=== PATIENT | female | born 1995 | race Caucasian/White ===

== ENCOUNTER 2018-12-14 02:29 | Inpatient (IN) | payer SELFPAY ==
[2018-12-14] MEDS ORDERED: Lactated Ringers 1,000 ML IV ONE (03:53)
[2018-12-14] MEDS ORDERED: ePHEDrine 50 MG/ML SDV IVPUSH PRN (03:53)
[2018-12-14] MEDS ORDERED: Sodium Chloride 0.9% 10 ML Syringe FLUSH PRN (03:58)
[2018-12-14] MEDS ORDERED: Ondansetron 4 MG/2 ML SDV IV PRN (03:58)
[2018-12-14] MEDS ORDERED: Acetaminophen 325 MG Tab PO PRN (03:58)
--- NOTE | 2018-12-14 04:07 | PCM.LDHP ---
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: - Past Surgical History HEENT Surgical History: Reports: Adenoidectomy, Myringotomy w Tube(s) Other HEENT Surgeries/Procedures: recurrent ear infections as a child Social & Family History - Tobacco Use Smoking Status *Q: Never Smoker Second Hand Smoke Exposure: No - Caffeine Use Caffeine Use: Reports: Coffee - Recreational Drug Use Recreational Drug Use: No H&P Review of Systems - Review of Systems: Review Of Systems: See Below General: Reports: No Symptoms HEENT: Reports: No Symptoms Pulmonary: Reports: No Symptoms Cardiovascular: Reports: No Symptoms Gastrointestinal: Reports: No Symptoms Genitourinary: Reports: No Symptoms Musculoskeletal: Reports: No Symptoms Skin: Reports: No Symptoms Psychiatric: Reports: No Symptoms Neurological: Reports: No Symptoms Hematologic/Lymphatic: Reports: No Symptoms Immunologic: Reports: No Symptoms L&D Exam - Exam Exam: See Below - Vital Signs Vital Signs: Last Vital Signs Temp 36.7 C 12/14/18 02:33 Pulse 64 12/14/18 02:33 Resp 16 12/14/18 02:33 BP 121/74 12/14/18 02:33 Pulse Ox Weight: 69.853 kg - OB Specific Contraction Duration (sec): 50-110 Contraction Frequency (min): 2-3.5 Contraction Intensity: Moderate Movement: Active Heart Tones: Present Heart Rate (FHR) Variability: Moderate (6-25 bmp) Presentation: Vertex - [place] Score [place] Score Cervix Position: Midposition [place] Score Consistency: Soft [place] Score Effacement: >80% [place] Score Dilation: > 5 cm [place] Score 's Station: +1, +2 [place] Score Total: 12 - Exam General: Alert, Oriented, Cooperative HEENT: PERRLA, Conjunctiva Clear, EACs Clear, EOMI, Hearing Intact, Mucosa Moist & [place], Nares Patent, Normal Nasal Septum, Posterior Pharynx Clear, TMs Clear Neck: Supple, Trachea Midline Lungs: Clear to Auscultation, Normal Respiratory Effort Cardiovascular: Regular Rate, Regular Rhythm GI/Abdominal Exam: Normal Bowel Sounds, Soft, Non-Tender, No Organomegaly, No Distention, No Abnormal Bruit, No Mass, Pelvis Stable Rectal Exam: Normal Exam, Normal Rectal Tone Genitourinary: Normal external exam, Normal bimanual exam, Normal speculum exam Back Exam: Normal Inspection, Full Range of Motion Extremities: Normal Inspection, Normal Range of Motion, Non-Tender, No Pedal Edema, Normal Capillary Refill Skin: Warm, Dry, Intact Neurological: Cranial Nerves Intact, Reflexes Equal Bilateral Psychiatric: Alert, Normal Affect, Normal Mood - Patient Data Lab Results Last 24 hrs: Laboratory Results - last 24 hr 12/14/18 12/14/18 12/14/18 Range/Units 02:34 02:34 02:51 WBC 15.3 H (4.5-11.0) K/uL RBC 4.29 (3.30-5.50) M/uL Hgb 13.2 (12.0-15.0) g/dL Hct 39.7 (36.0-48.0) % MCV 93 (80-98) fL MCH 31 (27-31) pg MCHC 33 (32-36) % Plt Count 195 (150-400) K/uL Urine Color Yellow Urine Appearance Clear Urine pH 6.0 (4.5-8.0) Ur Specific [place] 1.010 (1.008-1.030) Urine Protein Negative (NEGATIVE) mg/dL Urine Glucose (UA) Normal (NEGATIVE) mg/dL Urine Ketones Negative (NEGATIVE) mg/dL Urine Occult Blood Negative (NEGATIVE) Urine Nitrite Negative (NEGATIVE) Urine Bilirubin Negative (NEGATIVE) Urine Urobilinogen Normal (NORMAL) mg/dL Ur Leukocyte Esterase Small (NEGATIVE) Urine RBC 0-5 (0-5) Urine WBC 10-20 H (0-5) Ur Epithelial Cells Few Amorphous Sediment Few Urine Bacteria Few Urine Mucus Not seen Urine Opiates Screen Negative (NEGATIVE) Ur Oxycodone Screen Negative (NEGATIVE) Urine Methadone Screen Negative (NEGATIVE) Ur Propoxyphene Screen Negative (NEGATIVE) Ur Barbiturates Screen Negative (NEGATIVE) Ur Tricyclics Screen Negative (NEGATIVE) Ur Phencyclidine Scrn Negative (NEGATIVE) Ur Amphetamine Screen Negative (NEGATIVE) U Methamphetamines Scrn Negative (NEGATIVE) Urine MDMA Screen Negative (NEGATIVE) U Benzodiazepines Scrn Negative (NEGATIVE) U Cocaine Metab Screen Negative (NEGATIVE) U Marijuana (THC) Screen Negative (NEGATIVE) Result Diagrams: 12/14/18 02:51 - Problem List (1) SNOMED Code(s): 04902992 ICD Code: Z34.90 - ENCNTR FOR SUPRVSN OF NORMAL , UNSP, UNSP TRIMESTER Status: Acute Current Visit: Yes Qualifiers: Weeks of gestation: 40 weeks Qualified Code(s): Z3A.40 - 40 weeks gestation of (2) Labor established SNOMED Code(s): 55044620 ICD Code: FZX6686 - Status: Acute Current Visit: Yes Problem List Initiated/Reviewed/Updated: Yes Orders Last 24hrs: Active Orders 24 hr Category Date Time Status Patient Status [ADT] Routine ADT 12/14/18 03:53 Active Ambulate [RC] PER UNIT ROUTINE Care 12/14/18 03:58 Ordered Communication Order [RC] ASDIRECTED Care 12/14/18 03:53 Ordered Communication Order [RC] ASDIRECTED Care 12/14/18 03:53 Ordered Heart Tones [RC] PER UNIT ROUTINE Care 12/14/18 03:53 Ordered Non Stress Test [RC] Click to Edit Care 12/14/18 03:53 Ordered Insert Urinary Catheter [OM.PC] ASDIRECTED Care 12/14/18 04:00 Ordered Local Anesthetic Infusion Pump [RC] ASDIRECTED Care 12/14/18 03:53 Ordered Notify Provider Vital Signs [RC] PRN Care 12/14/18 03:58 Ordered Notify Provider [RC] PRN Care 12/14/18 03:53 Ordered PCEA Epidural [RC] ASDIRECTED Care 12/14/18 03:53 Ordered PCEA Epidural [RC] ASDIRECTED Care 12/14/18 04:00 Ordered Up ad [place] [RC] ASDIRECTED Care 12/14/18 03:58 Ordered Urinary Catheter Assessment [RC] ASDIRECTED Care 12/14/18 04:00 Ordered VTE/DVT Education [RC] Click to Edit Care 12/14/18 04:01 Ordered Vital Signs [RC] PER UNIT ROUTINE Care 12/14/18 03:53 Active Regular Diet [DIET] Diet 12/14/18 Breakfast Active Acetaminophen [Tylenol] Med 12/14/18 03:58 Ordered 650 mg PO Q4H PRN Lactated Ringers [Ringers, Lactated] 1,000 ml Med 12/14/18 03:53 Ordered IV .BOLUS Ondansetron [Zofran] Med 12/14/18 03:58 Ordered 4 mg IV Q4H PRN Oxytocin/Normal Saline [Pitocin in NS 20 Units/1,000 ML Med 12/14/18 04:02 Ordered ] 20 unit in 1,000 ml IV ONETIME Sodium Chloride 0.9% [Saline Flush] Med 12/14/18 03:58 Ordered 10 ml FLUSH ASDIRECTED PRN ePHEDrine [ePHEDrine sulfate] Med 12/14/18 03:53 Ordered 10 mg IVPUSH ASDIRECTED PRN DVT/VTE Prophylaxis Reflex [OM.PC] Routine Oth 12/14/18 03:58 Ordered Epidural Catheter Management [OM.PC] Urgent Oth 12/14/18 03:53 Ordered Saline Lock Insert [OM.PC] Routine Oth 12/14/18 03:53 Ordered Resuscitation Status Routine Resus Stat 12/14/18 03:53 Ordered Assessment/Plan Comment:: 12/14/2018 23 yo here at 40 2/7 weeks gestation in active labor Contractions started about 1145 pm yesterday and then got more intense SVE-4-5/90/+1 Contractions regular FHTs category one Plan Continue to monitor labor Continue to monitor FHTs Epidural for pain per patient request Plan and anticipate a vaginal delivery
[2018-12-14] MEDS ORDERED: Ropivacaine 100 ML ONE (04:33)
[2018-12-14] MEDS ORDERED: Hydrocortisone 2.5% Crm 30 GM Tube TOP PRN (07:59)
[2018-12-14] MEDS ORDERED: Benzocaine 20% Top Spray 56 GM Bottle TOP PRN (07:59)
[2018-12-14] MEDS ORDERED: Witch Hazel Medicated Pads 100/Jar TOP PRN (07:59)
[2018-12-14] MEDS ORDERED: Docusate Sodium 100 MG Cap PO PRN (07:59)
[2018-12-14] MEDS ORDERED: Lanolin 100% Cream 40 GM Tube TOP PRN (07:59)
[2018-12-14] MEDS ORDERED: Acetaminophen 325 MG Tab, 50 Tab Bulk Bottle PO PRN (08:09)
[2018-12-14] MEDS ORDERED: Ibuprofen 200 MG Tab, 24 Tab Bulk Bottle PO PRN (08:09)
--- NOTE | 2018-12-14 08:19 | PCM.DEL ---
L & D Note - General Info Date of Service: 12/14/18 Mother's Due Date: 12/12/18 - Delivery Note Labor: Spontaneous Delivery Outcome: Livebirth Infant Delivery Method: Spontaneous Vaginal Delivery-Single Infant Delivery Mode: Spontaneous Presentation: Right Occiput Anterior (BIANCA) Nuchal Cord: None Anesthesia Type: Epidural Amniotic Fluid Description: Clear Episiotomy Type: Right Mediolateral Suture type: Vicryl Suture size: 3-0 Placenta: Intact, Spontaneous Cord: 3 Vessels Estimated Blood Loss: 250 Resuscitation Needed: No [place]: Bulb Syringe, Stimulated, [place] Used Score 1 min: 9 Score 5 min: 10 Second Stage Interventions: Reports: Second Nurse Assessed Progress of Descent, Second Nurse Reviewed Contraction Pattern, Second Nurse Reviewed Heart Tones, Encouragement Given, Pushing Effectively, Pushing, McRobert's Position Delivery Comments (Free Text/Narrative):: 12/14/2018 23 yo at 40 2/7 weeks gestation delivered a viable female in BIANCA position at 0724 on 12/14/2018 after a mediolateral episiotomy was made to aide with delivery. was placed on prewarmed blanket on mother's abdomen , umbilical cord was double clamped and cut by father of infant after 60 seconds of delayed cord clamping. Infant was bulb suctioned, stimulated, dried and warmed and pinked in color and cried vigorously. APGARS-9/10, weight-8lbs 2oz, length-21 inches, placenta then came spontaneous, three vessel cord, EBL- 250ml. Mediolateral episiotomy repaired in usual fashion. No other lacerations noted of perineum, vagina, labia, cervix or rectum. now skin to skin with mother and both stable in labor and delivery room. Stages- [id number] - General Info Date of Service: 12/14/18 Functional Status: Reports: Pain Controlled - Review of Systems General: Reports: No Symptoms HEENT: Reports: No Symptoms Pulmonary: Reports: No Symptoms Cardiovascular: Reports: No Symptoms Gastrointestinal: Reports: No Symptoms Genitourinary: Reports: No Symptoms Musculoskeletal: Reports: No Symptoms Skin: Reports: No Symptoms Neurological: Reports: No Symptoms Psychiatric: Reports: No Symptoms - Patient Data Vitals - Most Recent: Last Vital Signs Temp 36.7 C 12/14/18 02:33 Pulse 85 12/14/18 06:00 Resp 16 12/14/18 06:00 BP 123/65 12/14/18 07:15 Pulse Ox 97 12/14/18 06:00 Weight - Most Recent: 69.853 kg Lab Results Last 24 Hours: Laboratory Results - last 24 hr 12/14/18 12/14/18 12/14/18 Range/Units 02:34 02:34 02:51 WBC 15.3 H (4.5-11.0) K/uL RBC 4.29 (3.30-5.50) M/uL Hgb 13.2 (12.0-15.0) g/dL Hct 39.7 (36.0-48.0) % MCV 93 (80-98) fL MCH 31 (27-31) pg MCHC 33 (32-36) % Plt Count 195 (150-400) K/uL Urine Color Yellow Urine Appearance Clear Urine pH 6.0 (4.5-8.0) Ur Specific [place] 1.010 (1.008-1.030) Urine Protein Negative (NEGATIVE) mg/dL Urine Glucose (UA) Normal (NEGATIVE) mg/dL Urine Ketones Negative (NEGATIVE) mg/dL Urine Occult Blood Negative (NEGATIVE) Urine Nitrite Negative (NEGATIVE) Urine Bilirubin Negative (NEGATIVE) Urine Urobilinogen Normal (NORMAL) mg/dL Ur Leukocyte Esterase Small (NEGATIVE) Urine RBC 0-5 (0-5) Urine WBC 10-20 H (0-5) Ur Epithelial Cells Few Amorphous Sediment Few Urine Bacteria Few Urine Mucus Not seen Urine Opiates Screen Negative (NEGATIVE) Ur Oxycodone Screen Negative (NEGATIVE) Urine Methadone Screen Negative (NEGATIVE) Ur Propoxyphene Screen Negative (NEGATIVE) Ur Barbiturates Screen Negative (NEGATIVE) Ur Tricyclics Screen Negative (NEGATIVE) Ur Phencyclidine Scrn Negative (NEGATIVE) Ur Amphetamine Screen Negative (NEGATIVE) U Methamphetamines Scrn Negative (NEGATIVE) Urine MDMA Screen Negative (NEGATIVE) U Benzodiazepines Scrn Negative (NEGATIVE) U Cocaine Metab Screen Negative (NEGATIVE) U Marijuana (THC) Screen Negative (NEGATIVE) Med Orders - Current: Current Medications Acetaminophen (Tylenol) 650 mg PO Q4H PRN PRN Reason: Pain (Mild 1-3) and fever Acetaminophen (Tylenol Bulk Bottle) 325 mg PO Q4H PRN PRN Reason: Pain Benzocaine (Cueb-T-Vcwtcqh 20% [place]) 0 gm TOP Q4H PRN PRN Reason: Perineal Comfort Measure Docusate Sodium (Colace) 100 mg PO BID PRN PRN Reason: Constipation Emollient Ointment (Lansinoh Hpa) 1 gm TOP ASDIRECTED PRN PRN Reason: Sore Nipples Ephedrine Sulfate (Ephedrine Sulfate) 10 mg IVPUSH ASDIRECTED PRN PRN Reason: Hypotension Hydrocortisone (Proctozone-Hc 2.5% Crm) 1 gm TOP ASDIRECTED PRN PRN Reason: Itching Ibuprofen (Motrin Bulk Bottle) 600 mg PO Q6H PRN PRN Reason: Pain Ondansetron HCl (Zofran) 4 mg IV Q4H PRN PRN Reason: Nausea/Vomiting Sodium Chloride (Saline Flush) 10 ml FLUSH ASDIRECTED PRN PRN Reason: Keep Vein Open Witch [place] (Tucks) 1 pad TOP ASDIRECTED PRN PRN Reason: Hemorrhoids Discontinued Medications Lactated Ringer's (Ringers, Lactated) 1,000 mls @ 999 mls/hr IV .BOLUS ONE Stop: 12/14/18 04:53 Last Admin: 12/14/18 03:53 Dose: 999 mls/hr Oxytocin/Sodium Chloride (Pitocin In Ns 20 Units/1,000 Ml) 20 unit in 1,000 mls @ 2,997 mls/hr IV ONETIME ONE; Protocol Stop: 12/14/18 04:22 Ropivacaine (Naropin 0.2%) Confirm Administered Dose 100 mls @ as directed .ROUTE .STK-MED ONE Stop: 12/14/18 04:34 - Exam General: Alert, Oriented, Cooperative HEENT: Pupils Equal, Pupils Reactive, EOMI, Mucous Membr. Moist/[place] Neck: Supple Lungs: Clear to Auscultation, Normal Respiratory Effort Cardiovascular: Regular Rate, Regular Rhythm GI/Abdominal Exam: Normal Bowel Sounds, Soft, Non-Tender, No Organomegaly, No Distention, No Abnormal Bruit, No Mass, Pelvis Stable (Female) Exam: Normal External Exam, Normal Speculum Exam, Normal Bimanual Exam, Enlarged Uterus, Vaginal Bleeding Back Exam: Normal Inspection, Full Range of Motion Extremities: Normal Inspection, Normal Range of Motion, Non-Tender, No Pedal Edema, Normal Capillary Refill Skin: Warm, Dry, Intact Wound/Incisions: Healing Well Neurological: No New Focal Deficit Psy/Mental Status: Alert, Normal Affect, Normal Mood - Problem List & Annotations (1) SNOMED Code(s): 91209897 Code(s): Z34.90 - ENCNTR FOR SUPRVSN OF NORMAL , UNSP, UNSP TRIMESTER Status: Acute Current Visit: Yes Qualifiers: Weeks of gestation: 40 weeks Qualified Code(s): Z3A.40 - 40 weeks gestation of (2) Labor established SNOMED Code(s): 64046438 Code(s): ZUC3656 - Status: Acute Current Visit: Yes (3) Vaginal delivery SNOMED Code(s): 543329908 Code(s): O80 - ENCOUNTER FOR FULL-TERM UNCOMPLICATED DELIVERY Status: Acute Current Visit: Yes (4) Perineal laceration SNOMED Code(s): 172472613 Code(s): IMQ5377 - Status: Acute Priority: High Current Visit: Yes - Problem List Review Problem List Initiated/Reviewed/Updated: Yes - My Orders Last 24 Hours: My Active Orders 12/14/18 03:53 Patient Status [ADT] Routine Communication Order [RC] ASDIRECTED Communication Order [RC] ASDIRECTED Non Stress Test [RC] Click to Edit Local Anesthetic Infusion Pump [RC] ASDIRECTED Notify Provider [RC] PRN PCEA Epidural [RC] ASDIRECTED Vital Signs [RC] PER UNIT ROUTINE ePHEDrine [ePHEDrine sulfate] 10 mg IVPUSH ASDIRECTED PRN Epidural Catheter Management [OM.PC] Urgent Saline Lock Insert [OM.PC] Routine Resuscitation Status Routine 12/14/18 03:58 Ambulate [RC] PER UNIT ROUTINE Notify Provider Vital Signs [RC] PRN Up ad [place] [RC] ASDIRECTED Acetaminophen [Tylenol] 650 mg PO Q4H PRN Ondansetron [Zofran] 4 mg IV Q4H PRN Sodium Chloride 0.9% [Saline Flush] 10 ml FLUSH ASDIRECTED PRN DVT/VTE Prophylaxis Reflex [OM.PC] Routine 12/14/18 04:00 Insert Urinary Catheter [OM.PC] ASDIRECTED 12/14/18 04:01 VTE/DVT Education [RC] Click to Edit 12/14/18 07:59 Patient Status [ADT] Routine Vital Signs [RC] PFP Benzocaine [Symt-K-Epybvah 20% [place]] See Dose Instructions TOP Q4H PRN Docusate Sodium [Colace] 100 mg PO BID PRN Hydrocortisone [Proctozone-HC 2.5% Crm] 1 gm TOP ASDIRECTED PRN Lanolin [Lansinoh HPA] 1 gm TOP ASDIRECTED PRN [place] [Tucks] 1 pad TOP ASDIRECTED PRN Assess Lochia [WOMSER] Per Unit Routine Assess Uterine Involution [WOMSER] Per Unit Routine 12/14/18 08:01 Perineal Care [OM.PC] Per Unit Routine Sitz Bath [OM.PC] Per Unit Routine 12/14/18 08:09 Acetaminophen [Tylenol Bulk Bottle] 325 mg PO Q4H PRN Ibuprofen [Motrin Bulk Bottle] 600 mg PO Q6H PRN 12/14/18 Breakfast Regular Diet [DIET] 12/15/18 06:00 CBC WITH AUTO DIFF [HEME] Routine - Assessment Assessment:: 12/14/2018 23 yo G1 now P1 delivered without complications Mediolateral episiotomy repaired Labs-O positive, Hep B neg, Hep C neg, RPR nonreactive, HIV negative, Rubella Immune, GBS negative - Plan Plan:: 12/14/2018 23 yo here at 40 2/7 weeks gestation in active labor Contractions started about 1145 pm yesterday and then got more intense SVE-4-5/90/+1 Contractions regular FHTs category one Plan Continue to monitor labor Continue to monitor FHTs Epidural for pain per patient request Plan and anticipate a vaginal delivery 12/14/2018 Routine cares Encourage and support Encourage good perineal care and ice, and sitz bath
--- NOTE | 2018-12-14 13:30 | ANES ---
DATE OF SERVICE: 12/14/2018 INDICATION: Mrs. Warren is a 23-year-old female patient, referred to me by Shaye Champagne to evaluate her for a labor epidural. This is her first baby, and she is approximately 5 cm. I did explain the risks and benefits of the epidural procedure, and she wished to proceed. TECHNIQUE: She was placed in a sitting position. Her back was prepped x3 with Betadine and 1% lidocaine skin local was used. The epidural was placed at L3-4 using a 17-gauge Tuohy needle in loss of resistance technique. The epidural had very good feel throughout, and the epidural space was easily identified. There was negative CSF, negative blood, and negative paresthesias noted. Therefore, a catheter was threaded to 12 cm at the skin. There was negative CSF, negative blood, and negative paresthesias with catheter as well. A -1.5% lidocaine with epinephrine test dose was given. The catheter was then secured with Tegaderm and tape. The patient was placed in a supine position. A 0.2% ropivacaine bolus of 12 mL was given. The patient had very good relief from the bolus, and her vital signs remained stable. Therefore, 0.2% ropivacaine drip was started at 12 mL/hour. The patient's vital signs remained stable throughout the procedure and nurse was with me for the entire procedure. We will continue to monitor her Labor and Delivery stay. Evaristo England CRNA /[id number]
--- NOTE | 2018-12-15 07:46 | PCM.PNPP ---
- General Info Date of Service: 12/15/18 (PPD 1 D/C) Admission Dx/Problem (Free Text): Patient Status Order with Admit Dx/Problem 12/14/18 03:53 Patient Status [ADT] Routine Admission Diagnosis/Problem Admission Diagnosis/Problem Functional Status: Reports: Pain Controlled - Review of Systems General: Reports: No Symptoms HEENT: Reports: No Symptoms Pulmonary: Reports: No Symptoms Cardiovascular: Reports: No Symptoms Gastrointestinal: Reports: No Symptoms Genitourinary: Reports: No Symptoms Musculoskeletal: Reports: No Symptoms Skin: Reports: No Symptoms Neurological: Reports: No Symptoms Psychiatric: Reports: No Symptoms - General Info Date of Service: 12/15/18 - Patient Data Vital Signs - Most Recent: Last Vital Signs Temp 97.1 F 12/15/18 04:09 Pulse 67 12/15/18 04:09 Resp 16 12/15/18 04:09 BP 104/60 12/15/18 04:09 Pulse Ox 98 12/15/18 04:09 Weight - Most Recent: 153 lb 15.992 oz I&O - Last 24 Hours: Intake & Output 12/14/18 12/15/18 12/15/18 22:59 06:59 14:59 Intake Total 2400 1000 Balance 2400 1000 Lab Results - Last 24 Hours: Laboratory Results - last 24 hr 12/15/18 Range/Units 05:40 WBC 12.3 H (4.5-11.0) K/uL RBC 3.57 (3.30-5.50) M/uL Hgb 11.0 L D (12.0-15.0) g/dL Hct 33.7 L (36.0-48.0) % MCV 94 (80-98) fL MCH 31 (27-31) pg MCHC 33 (32-36) % Plt Count 149 L (150-400) K/uL Neut % (Auto) 73 H (36-66) % Lymph % (Auto) 18 L (24-44) % [place] % (Auto) 7 H (2-6) % Eos % (Auto) 3 (2-4) % Baso % (Auto) 0 (0-1) % Med Orders - Current: Current Medications Acetaminophen (Tylenol) 650 mg PO Q4H PRN PRN Reason: Pain (Mild 1-3) and fever Acetaminophen (Tylenol Bulk Bottle) 325 mg PO Q4H PRN PRN Reason: Pain Last Admin: 12/14/18 14:34 Dose: 2 tab Benzocaine (Hgjt-B-Ehwoiqh 20% [place]) 0 gm TOP Q4H PRN PRN Reason: Perineal Comfort Measure Docusate Sodium (Colace) 100 mg PO BID PRN PRN Reason: Constipation Emollient Ointment (Lansinoh Hpa) 1 gm TOP ASDIRECTED PRN PRN Reason: Sore Nipples Ephedrine Sulfate (Ephedrine Sulfate) 10 mg IVPUSH ASDIRECTED PRN PRN Reason: Hypotension Hydrocortisone (Proctozone-Hc 2.5% Crm) 1 gm TOP ASDIRECTED PRN PRN Reason: Itching Ibuprofen (Motrin Bulk Bottle) 600 mg PO Q6H PRN PRN Reason: Pain Last Admin: 12/14/18 10:44 Dose: 3 tab Ondansetron HCl (Zofran) 4 mg IV Q4H PRN PRN Reason: Nausea/Vomiting Sodium Chloride (Saline Flush) 10 ml FLUSH ASDIRECTED PRN PRN Reason: Keep Vein Open Witch [place] (Tucks) 1 pad TOP ASDIRECTED PRN PRN Reason: Hemorrhoids Discontinued Medications Lactated Ringer's (Ringers, Lactated) 1,000 mls @ 999 mls/hr IV .BOLUS ONE Stop: 12/14/18 04:53 Last Admin: 12/14/18 03:53 Dose: 999 mls/hr Oxytocin/Sodium Chloride (Pitocin In Ns 20 Units/1,000 Ml) 20 unit in 1,000 mls @ 2,997 mls/hr IV ONETIME ONE; Protocol Stop: 12/14/18 04:22 Last Admin: 12/14/18 07:30 Dose: 999 munits/min, 2,997 mls/hr Ropivacaine (Naropin 0.2%) Confirm Administered Dose 100 mls @ as directed .ROUTE .STK-MED ONE Stop: 12/14/18 04:34 - Interaction Disposition, : at Bedside Feeding: Breastfed Infant; Nursed Well Support Person: - Recovery Exam Fundal Tone: Firm Fundal Level: 1 Fingerbreadths Below Umbilicus Fundal Placement: Midline Lochia Amount: Moderate Lochia Color: Rubra/Red Perineum Description: Intact, Minimal Bruising/Swelling, Edematous Other Perinuem Description: Digital exam, repair intact, no hematoma Episiotomy/Laceration: Approximated Bladder Status: Voiding Urinary Elimination: Voided - Exam General: Alert, Oriented HEENT: Pupils Equal Neck: Supple Lungs: Clear to Auscultation, Normal Respiratory Effort Cardiovascular: Regular Rate, Regular Rhythm GI/Abdominal Exam: Normal Bowel Sounds, Soft, Non-Tender, No Organomegaly, No Distention, No Abnormal Bruit, No Mass, Pelvis Stable Extremities: Normal Inspection, Normal Range of Motion, Non-Tender, No Pedal Edema, Normal Capillary Refill Skin: Warm, Dry, Intact Wound/Incisions: Healing Well Neurological: No New Focal Deficit Psy/Mental Status: Alert, Normal Affect, Normal Mood - Problem List & Annotations (1) SNOMED Code(s): 48214641 Code(s): Z34.90 - ENCNTR FOR SUPRVSN OF NORMAL , UNSP, UNSP TRIMESTER Status: Acute Current Visit: Yes Qualifiers: Weeks of gestation: 40 weeks Qualified Code(s): Z3A.40 - 40 weeks gestation of (2) Labor established SNOMED Code(s): 12464542 Code(s): RIN7514 - Status: Acute Current Visit: Yes (3) Vaginal delivery SNOMED Code(s): 879166958 Code(s): O80 - ENCOUNTER FOR FULL-TERM UNCOMPLICATED DELIVERY Status: Acute Current Visit: Yes (4) Perineal laceration SNOMED Code(s): 915545122 Code(s): SQC6381 - Status: Acute Priority: High Current Visit: Yes - Problem List Review Problem List Initiated/Reviewed/Updated: Yes - Assessment Assessment:: 12/14/2018 23 yo G1 now P1 delivered without complications Mediolateral episiotomy repaired Labs-O positive, Hep B neg, Hep C neg, RPR nonreactive, HIV negative, Rubella Immune, GBS negative 12/15/18 feeling well, no S&S of depression Breast slightly tender, baby nursing well Voiding without problem Flow light, repair intact, tender no hematoma HGB 11 ABO O pos Rubella immune - Plan Plan:: 12/14/2018 23 yo here at 40 2/7 weeks gestation in active labor Contractions started about 1145 pm yesterday and then got more intense SVE-4-/+1 Contractions regular FHTs category one Plan Continue to monitor labor Continue to monitor FHTs Epidural for pain per patient request Plan and anticipate a vaginal delivery 12/14/2018 Routine cares Encourage and support Encourage good perineal care and ice, and sitz bath 12/15/18 Ready for discharge and want to go home later today Teaching about self cares, mood, breasts and bottom Has family support and Home today, see Margareth Champagne 6-8 weeks
== END 2018-12-15 15:00 | disposition home or self-care (01) | DRG 807 ==
LOC: JP.OBCHECK 02:29 → JP.OB 02:45 → OBSVTOIN 07:24 → JP.MS 15:02
PROVIDERS: ADMIT Advanced Practice Midwife; ATTEND Advanced Practice Midwife
PROC: 10E0XZZ Delivery of Products of Conception, External Approach (ICD-10-PCS; principal; 2018-12-14)
PROC: 0W8NXZZ Division of Female Perineum, External Approach (ICD-10-PCS; 2018-12-14)
PROC: 00HU33Z Insertion of Infusion Device into Spinal Canal, Percutaneous Approach (ICD-10-PCS; 2018-12-14)
DX: O80 Encounter for full-term uncomplicated delivery (principal); Z37.0 Single live birth; Z3A.40 40 weeks gestation of pregnancy
CPT/HCPCS: 36415; 51702; 59409; 80305-QW; 81001; 85025; 85027; 99211; A9270-GY; J2590; J2795; J7120

== ENCOUNTER 2021-04-22 03:53 | Inpatient (IN) | payer SELFPAY ==
[2021-04-22] MEDS ORDERED: Penicillin G Potassium 5 MILLUNITS in Sodium Chloride 0.9% 50 ML IV ONE (05:15)
[2021-04-22] MEDS ORDERED: Sodium Chloride 0.9% 10 ML Syringe FLUSH PRN (06:24)
--- NOTE | 2021-04-22 06:36 | PCM.LDHP ---
L&D History of Present Illness - General Date of Service: 04/22/21 (40 week, SROM, GBS pos) Admit Problem/Dx: Patient Status Order with Admit Dx/Problem 04/22/21 06:24 Patient Status [ADT] Routine Admission Diagnosis/Problem Admission Diagnosis/Problem Source of Information: Patient History Limitations: Reports: No Limitations - History of Present Illness Introduction:: 04/22/21 25 year old 40 IUP, SROM at home at 0250 clear fluid. 2 cm dilated at 0430 by RN. Adequate care GBS positive, Timing/Duration: Reports: minutes: (3-4) Location, : Reports: Abdomen Quality: Reports: Pressure Improves with: Reports: None Worsens with: Reports: None - Related Data Allergies/Adverse Reactions: Allergies Allergy/AdvReac Type Severity Reaction Status Date / Time No Known Allergies Allergy Verified 12/14/18 10:00 Home Medications: Home Meds Ascorbic Acid [Vitamin C] 1,000 mg PO DAILY 04/22/21 [History] Cetirizine [ZyrTEC] 10 mg PO DAILY 04/22/21 [History] Pnv No.95/Ferrous Fum/Folic AC [ Caplet] 1 each PO DAILY 04/22/21 [History] Past Medical History [employer] History: Reports: : 3 Para: 1 LMP (Approximate): (VAHE 04/22/21) - Infectious Disease History Infectious Disease History: Reports: None - Past Surgical History HEENT Surgical History: Reports: Adenoidectomy, Myringotomy w Tube(s) Other HEENT Surgeries/Procedures: recurrent ear infections as a child Social & Family History - Tobacco Use Tobacco Use Status *Q: Never Tobacco User - Caffeine Use Caffeine Use: Reports: None - Recreational Drug Use Recreational Drug Use: No H&P Review of Systems - Review of Systems: Review Of Systems: See Below General: Reports: No Symptoms HEENT: Reports: No Symptoms Pulmonary: Reports: No Symptoms Cardiovascular: Reports: No Symptoms Gastrointestinal: Reports: No Symptoms Genitourinary: Reports: No Symptoms Musculoskeletal: Reports: No Symptoms Skin: Reports: No Symptoms Psychiatric: Reports: No Symptoms Neurological: Reports: No Symptoms Hematologic/Lymphatic: Reports: No Symptoms Immunologic: Reports: No Symptoms L&D Exam - Exam Exam: See Below - Vital Signs Vital Signs: Last Vital Signs Temp 97.2 F 04/22/21 04:13 Pulse Resp BP Pulse Ox Weight: 150 lb - OB Specific Contraction Duration (sec): 70-80 Contraction Frequency (min): 3-5 Contraction Intensity: Mild to Moderate Movement: Active Heart Tones: Present Heart Tones per Min: 150 Heart Rate (FHR) Variability: Moderate (6-25 bpm) Presentation: Vertex - [place] Score [place] Score Cervix Position: Posterior [place] Score Consistency: Soft [place] Score Effacement: 51-70% [place] Score Dilation: 1-2 cm [place] Score Infant's Station: -2 [place] Score Total: 6 - Exam General: Alert, Oriented HEENT: PERRLA, Conjunctiva Clear, Hearing Intact, Mucosa Moist & [place] Neck: Supple Lungs: Clear to Auscultation, Normal Respiratory Effort Cardiovascular: Regular Rate, Regular Rhythm GI/Abdominal Exam: Normal Bowel Sounds, Soft Rectal Exam: Normal Exam Genitourinary: Normal external exam, Cervical dilitation, Enlarged uterus, Vaginal discharge Back Exam: Normal Inspection, Full Range of Motion Extremities: No Pedal Edema, Normal Capillary Refill Skin: Warm, Dry Neurological: Cranial Nerves Intact Psychiatric: Alert, Normal Affect, Normal Mood - Patient Data Lab Results Last 24 hrs: Laboratory Results - last 24 hr 04/22/21 04/22/21 04/22/21 Range/Units 04:16 04:58 05:03 WBC (4.5-11.0) K/uL RBC (3.30-5.50) M/uL Hgb (12.0-15.0) g/dL Hct (36.0-48.0) % MCV (80-98) fL MCH (27-31) pg MCHC (32-36) % Plt Count (150-400) K/uL Neut % (Auto) (36-66) % Lymph % (Auto) (24-44) % [place] % (Auto) (2-6) % Eos % (Auto) (2-4) % Baso % (Auto) (0-1) % Urine Color Yellow (YELLOW) Urine Appearance Clear (CLEAR) Urine pH 7.0 (5.0-8.0) Ur Specific [place] 1.020 (1.008-1.030) Urine Protein Negative (NEGATIVE) mg/dL Urine Glucose (UA) Negative (NEGATIVE) mg/dL Urine Ketones Negative (NEGATIVE) mg/dL Urine Occult Blood Small H (NEGATIVE) Urine Nitrite Negative (NEGATIVE) Urine Bilirubin Negative (NEGATIVE) Urine Urobilinogen 0.2 (0.2-1.0) EU/dL Ur Leukocyte Esterase Negative (NEGATIVE) Urine RBC 0-5 (0-5) Urine WBC 0-5 (0-5) Ur Epithelial Cells Few Amorphous Sediment Not seen Urine Bacteria Few Urine Mucus Not seen Membrane Rupture Positive H (NEGATIVE) Urine Opiates Screen (NEGATIVE) Ur Oxycodone Screen (NEGATIVE) Urine Methadone Screen (NEGATIVE) Ur Propoxyphene Screen (NEGATIVE) Ur Barbiturates Screen (NEGATIVE) Ur Tricyclics Screen (NEGATIVE) Ur Phencyclidine Scrn (NEGATIVE) Ur Amphetamine Screen (NEGATIVE) U Methamphetamines Scrn (NEGATIVE) Urine MDMA Screen (NEGATIVE) U Benzodiazepines Scrn (NEGATIVE) U Cocaine Metab Screen (NEGATIVE) U Marijuana (THC) Screen (NEGATIVE) SARS-CoV-2 RNA (SDINEY) Negative (NEGATIVE) 04/22/21 04/22/21 Range/Units 05:33 06:00 WBC 11.5 H (4.5-11.0) K/uL RBC 4.57 (3.30-5.50) M/uL Hgb 14.1 D (12.0-15.0) g/dL Hct 41.8 (36.0-48.0) % MCV 92 (80-98) fL MCH 31 (27-31) pg MCHC 34 (32-36) % Plt Count 185 (150-400) K/uL Neut % (Auto) 69.1 H (36-66) % Lymph % (Auto) 19.9 L (24-44) % [place] % (Auto) 8.2 H (2-6) % Eos % (Auto) 2.7 (2-4) % Baso % (Auto) 0.1 (0-1) % Urine Color (YELLOW) Urine Appearance (CLEAR) Urine pH (5.0-8.0) Ur Specific [place] (1.008-1.030) Urine Protein (NEGATIVE) mg/dL Urine Glucose (UA) (NEGATIVE) mg/dL Urine Ketones (NEGATIVE) mg/dL Urine Occult Blood (NEGATIVE) Urine Nitrite (NEGATIVE) Urine Bilirubin (NEGATIVE) Urine Urobilinogen (0.2-1.0) EU/dL Ur Leukocyte Esterase (NEGATIVE) Urine RBC (0-5) Urine WBC (0-5) Ur Epithelial Cells Amorphous Sediment Urine Bacteria Urine Mucus Membrane Rupture (NEGATIVE) Urine Opiates Screen Negative (NEGATIVE) Ur Oxycodone Screen Negative (NEGATIVE) Urine Methadone Screen Negative (NEGATIVE) Ur Propoxyphene Screen Negative (NEGATIVE) Ur Barbiturates Screen Negative (NEGATIVE) Ur Tricyclics Screen Negative (NEGATIVE) Ur Phencyclidine Scrn Negative (NEGATIVE) Ur Amphetamine Screen Negative (NEGATIVE) U Methamphetamines Scrn Negative (NEGATIVE) Urine MDMA Screen Negative (NEGATIVE) U Benzodiazepines Scrn Negative (NEGATIVE) U Cocaine Metab Screen Negative (NEGATIVE) U Marijuana (THC) Screen Negative (NEGATIVE) SARS-CoV-2 RNA (SIDNEY) (NEGATIVE) Result Diagrams: 04/22/21 06:00 - Problem List (1) GBS (group B Streptococcus carrier), +RV culture, currently SNOMED Code(s): 2420192341436, [id number], 2147332015722 ICD Code: O99.820 - STREPTOCOCCUS B CARRIER STATE COMPLICATING Status: Acute Current Visit: Yes (2) SROM (spontaneous rupture of membranes) SNOMED Code(s): 514032224 ICD Code: FBQ8668 - Status: Acute Current Visit: Yes (3) SNOMED Code(s): 72908230 ICD Code: Z34.90 - ENCNTR FOR SUPRVSN OF NORMAL , UNSP, UNSP TRIMESTER Status: Acute Current Visit: Yes Qualifiers: Weeks of gestation: 40 weeks Qualified Code(s): Z3A.40 - 40 weeks gestation of Problem List Initiated/Reviewed/Updated: Yes Orders Last 24hrs: Active Orders 24 hr Category Date Time Status Patient Status [ADT] Routine ADT 04/22/21 06:24 Ordered Antiembolic Devices [RC] .Routine Care 04/22/21 06:27 Ordered Communication Order [RC] ASDIRECTED Care 04/22/21 06:24 Ordered Heart Tones [RC] PER UNIT ROUTINE Care 04/22/21 06:24 Ordered Non Stress Test [RC] Click to Edit Care 04/22/21 06:24 Ordered Notify Provider Vital Signs [RC] PRN Care 04/22/21 06:24 Ordered Notify Provider [RC] PRN Care 04/22/21 06:24 Ordered OB Check [OM.PC] Click to Edit Care 04/22/21 03:56 Ordered VTE/DVT Education [RC] Click to Edit Care 04/22/21 06:27 Ordered Vital Signs [RC] PER UNIT ROUTINE Care 04/22/21 06:24 Ordered Regular Diet [DIET] Diet 04/22/21 Breakfast Active Oxytocin/Normal Saline [Pitocin in NS 20 Units/1,000 ML Med 04/22/21 06:28 Ordered ] 20 unit in 1,000 ml IV ONETIME Penicillin G Potassium [Pfizerpen] 2.5 millunits Med 04/22/21 09:15 Active Sodium Chloride 0.9% [Normal Saline] 50 ml IV Q4H Sodium Chloride 0.9% [Saline Flush] Med 04/22/21 06:24 Ordered 10 ml FLUSH ASDIRECTED PRN DVT/VTE Prophylaxis Reflex [OM.PC] Routine Oth 04/22/21 06:24 Ordered Saline Lock Insert [OM.PC] Routine Oth 04/22/21 06:24 Ordered Resuscitation Status Routine Resus Stat 04/22/21 06:24 Ordered Medication Orders Penicillin G Potassium 2.5 (millunits/ Sodium Chloride) 50 mls @ 100 mls/hr IV Q4H AYDEN Oxytocin/Sodium Chloride (Pitocin In Ns 20 Units/1,000 Ml) 20 unit in 1,000 mls @ 999 mls/hr IV ONETIME ONE; Protocol Stop: 04/22/21 07:28 Sodium Chloride (Sodium Chloride 0.9% 10 Ml Syringe) 10 ml FLUSH ASDIRECTED PRN PRN Reason: Keep Vein Open Assessment/Plan Comment:: 04/22/21 25 year old 40 weeks, SROM clear fluid at 0240, GBS pos treatment started, Covid negative Plan Monitor for active labor plan for vaginal delivery may want an epidural, PLT 185 Limit vaginal exams until labor established
[2021-04-22] MEDS ORDERED: Penicillin G Potassium 2.5 MILLUNITS in Sodium Chloride 0.9% 50 ML IV SCH (09:15)
--- NOTE | 2021-04-22 11:40 | PCM.DEL ---
<Any Moore A - Last Filed: 04/22/21 11:26> L & D Note - General Info Date of Service: 04/22/21 Mother's Due Date: 04/22/21 - Delivery Note Labor: Spontaneous Delivery Outcome: Livebirth Infant Delivery Method: Spontaneous Vaginal Delivery-Single Delivery Mode: Spontaneous Presentation: Right Occiput Anterior (BIANCA) Nuchal Cord: None Anesthesia Type: Nitrous Oxide Amniotic Fluid Description: Clear Episiotomy Type: None Laceration: 1st Degree, Perineal Placenta: Intact, Spontaneous Cord: 3 Vessels Estimated Blood Loss: 300 Resuscitation Needed: No [place]: Bulb Syringe, Stimulated, Warmed, [place] Used Provider: leta cristobal Score 1 min: 9 Score 5 min: 9 Second Stage Interventions: Reports: Second Nurse Assessed Progress of Descent, Second Nurse Reviewed Contraction Pattern, Second Nurse Reviewed Heart Tones, Encouragement Given, Pushing Effectively, Pushing, Feet in Foot Rests, Pushing, Knee Chest Position Delivery Comments (Free Text/Narrative):: 04/22/21 Kaitlin is a 25 year old G3 now P2 at 40 weeks, VAHE today 04/22/21. She began pushing at at 1038 when she was found to be completed and had a spontaneous forebag rupture. She was using nitrous for pain management and EFM showed a Category 1 tracing. She gave to a baby boy at 1103 via in the BIANCA position. Baby was dried, stimulated, and bulb suctioned. APGARs were 9 and 9 at 1 and 5 minutes respectively. There was no nuchal cord and it was noted to be a 3 vessel cord. He weighed 8lbs 12oz at . Placenta was expressed sponta neously and intact. There was no episiotomy but one 1st degree tear of the perineum that did not need suture repair. EBL was 300mL. She recieved one dose of abx for GBS positive status. Partner supportive and at bedside. Mother to recovery room in stable condition. to nursery in stable condition. Stages of labor Stage 1: 6959-7982 Stage 2: 3006-9349 Stage 3: 2290-9934 - General Info Date of Service: 04/22/21 Admission Dx/Problem (Free Text): Patient Status Order with Admit Dx/Problem 04/22/21 06:24 Patient Status [ADT] Routine Admission Diagnosis/Problem Admission Diagnosis/Problem Functional Status: Reports: Pain Controlled - Review of Systems General: Reports: No Symptoms HEENT: Reports: No Symptoms Pulmonary: Reports: No Symptoms Cardiovascular: Reports: No Symptoms Gastrointestinal: Reports: No Symptoms Genitourinary: Reports: No Symptoms Musculoskeletal: Reports: No Symptoms Skin: Reports: No Symptoms Neurological: Reports: No Symptoms Psychiatric: Reports: No Symptoms - Patient Data Vitals - Most Recent: Last Vital Signs Temp 97.5 F 04/22/21 08:20 Pulse 73 04/22/21 08:20 Resp 20 04/22/21 08:20 BP 99/64 04/22/21 08:20 Pulse Ox 96 04/22/21 08:20 Weight - Most Recent: 150 lb Lab Results Last 24 Hours: Laboratory Results - last 24 hr 04/22/21 04/22/21 04/22/21 Range/Units 04:16 04:58 05:03 WBC (4.5-11.0) K/uL RBC (3.30-5.50) M/uL Hgb (12.0-15.0) g/dL Hct (36.0-48.0) % MCV (80-98) fL MCH (27-31) pg MCHC (32-36) % Plt Count (150-400) K/uL Neut % (Auto) (36-66) % Lymph % (Auto) (24-44) % [place] % (Auto) (2-6) % Eos % (Auto) (2-4) % Baso % (Auto) (0-1) % Urine Color Yellow (YELLOW) Urine Appearance Clear (CLEAR) Urine pH 7.0 (5.0-8.0) Ur Specific [place] 1.020 (1.008-1.030) Urine Protein Negative (NEGATIVE) mg/dL Urine Glucose (UA) Negative (NEGATIVE) mg/dL Urine Ketones Negative (NEGATIVE) mg/dL Urine Occult Blood Small H (NEGATIVE) Urine Nitrite Negative (NEGATIVE) Urine Bilirubin Negative (NEGATIVE) Urine Urobilinogen 0.2 (0.2-1.0) EU/dL Ur Leukocyte Esterase Negative (NEGATIVE) Urine RBC 0-5 (0-5) Urine WBC 0-5 (0-5) Ur Epithelial Cells Few Amorphous Sediment Not seen Urine Bacteria Few Urine Mucus Not seen Membrane Rupture Positive H (NEGATIVE) Urine Opiates Screen (NEGATIVE) Ur Oxycodone Screen (NEGATIVE) Urine Methadone Screen (NEGATIVE) Ur Propoxyphene Screen (NEGATIVE) Ur Barbiturates Screen (NEGATIVE) Ur Tricyclics Screen (NEGATIVE) Ur Phencyclidine Scrn (NEGATIVE) Ur Amphetamine Screen (NEGATIVE) U Methamphetamines Scrn (NEGATIVE) Urine MDMA Screen (NEGATIVE) U Benzodiazepines Scrn (NEGATIVE) U Cocaine Metab Screen (NEGATIVE) U Marijuana (THC) Screen (NEGATIVE) SARS-CoV-2 RNA (SIDNEY) Negative (NEGATIVE) 04/22/21 04/22/21 Range/Units 05:33 06:00 WBC 11.5 H (4.5-11.0) K/uL RBC 4.57 (3.30-5.50) M/uL Hgb 14.1 D (12.0-15.0) g/dL Hct 41.8 (36.0-48.0) % MCV 92 (80-98) fL MCH 31 (27-31) pg MCHC 34 (32-36) % Plt Count 185 (150-400) K/uL Neut % (Auto) 69.1 H (36-66) % Lymph % (Auto) 19.9 L (24-44) % [place] % (Auto) 8.2 H (2-6) % Eos % (Auto) 2.7 (2-4) % Baso % (Auto) 0.1 (0-1) % Urine Color (YELLOW) Urine Appearance (CLEAR) Urine pH (5.0-8.0) Ur Specific [place] (1.008-1.030) Urine Protein (NEGATIVE) mg/dL Urine Glucose (UA) (NEGATIVE) mg/dL Urine Ketones (NEGATIVE) mg/dL Urine Occult Blood (NEGATIVE) Urine Nitrite (NEGATIVE) Urine Bilirubin (NEGATIVE) Urine Urobilinogen (0.2-1.0) EU/dL Ur Leukocyte Esterase (NEGATIVE) Urine RBC (0-5) Urine WBC (0-5) Ur Epithelial Cells Amorphous Sediment Urine Bacteria Urine Mucus Membrane Rupture (NEGATIVE) Urine Opiates Screen Negative (NEGATIVE) Ur Oxycodone Screen Negative (NEGATIVE) Urine Methadone Screen Negative (NEGATIVE) Ur Propoxyphene Screen Negative (NEGATIVE) Ur Barbiturates Screen Negative (NEGATIVE) Ur Tricyclics Screen Negative (NEGATIVE) Ur Phencyclidine Scrn Negative (NEGATIVE) Ur Amphetamine Screen Negative (NEGATIVE) U Methamphetamines Scrn Negative (NEGATIVE) Urine MDMA Screen Negative (NEGATIVE) U Benzodiazepines Scrn Negative (NEGATIVE) U Cocaine Metab Screen Negative (NEGATIVE) U Marijuana (THC) Screen Negative (NEGATIVE) SARS-CoV-2 RNA (SIDNEY) (NEGATIVE) Med Orders - Current: Current Medications Penicillin G Potassium 2.5 (millunits/ Sodium Chloride) 50 mls @ 100 mls/hr IV Q4H AYDEN Last Admin: 04/22/21 08:59 Dose: 100 mls/hr Documented by: Sodium Chloride (Sodium Chloride 0.9% 10 Ml Syringe) 10 ml FLUSH ASDIRECTED PRN PRN Reason: Keep Vein Open Discontinued Medications Penicillin G Potassium 5 (millunits/ Sodium Chloride) 50 mls @ 100 mls/hr IV ONETIME ONE Stop: 04/22/21 05:44 Last Admin: 04/22/21 05:27 Dose: 100 mls/hr Documented by: Oxytocin/Sodium Chloride (Pitocin In Ns 20 Units/1,000 Ml) 20 unit in 1,000 mls @ 999 mls/hr IV ONETIME ONE; Protocol Stop: 04/22/21 07:28 - Exam General: Alert, Oriented HEENT: EOMI, Mucous Membr. Moist/[place] Neck: Supple Lungs: Normal Respiratory Effort Cardiovascular: Regular Rate GI/Abdominal Exam: Soft, Non-Tender, Distended (Female) Exam: Normal External Exam, Cervical Dilatation, Enlarged Uterus, Heart Tones Back Exam: Full Range of Motion Extremities: Normal Inspection, Normal Range of Motion, No Pedal Edema, Normal Capillary Refill Skin: Warm, Dry, Intact Neurological: No New Focal Deficit Psy/Mental Status: Alert, Normal Affect, Normal Mood - Problem List & Annotations (1) Mother currently breast-feeding SNOMED Code(s): 160925667 Code(s): Z39.1 - ENCOUNTER FOR CARE AND EXAMINATION OF LACTATING MOTHER Status: Acute Current Visit: Yes (2) First degree perineal laceration SNOMED Code(s): 15706590 Code(s): O70.0 - FIRST DEGREE PERINEAL LACERATION DURING DELIVERY Status: Acute Current Visit: Yes (3) Vaginal delivery SNOMED Code(s): 836793122 Code(s): O80 - ENCOUNTER FOR FULL-TERM UNCOMPLICATED DELIVERY Status: Acute Current Visit: No (4) SNOMED Code(s): 27379229 Code(s): Z34.90 - ENCNTR FOR SUPRVSN OF NORMAL , UNSP, UNSP TRIMESTER Status: Acute Current Visit: Yes Qualifiers: Weeks of gestation: 40 weeks Qualified Code(s): Z3A.40 - 40 weeks gestation of - Problem List Review Problem List Initiated/Reviewed/Updated: Yes - Assessment Assessment:: 04/22/21 Assessment: at 40 weeks gestation First degree perineal laceration GBS positive Adequate partner support - Plan Plan:: 04/22/21 25 year old 40 weeks, SROM clear fluid at 0240, GBS pos treatment started, Covid negative Plan Monitor for active labor plan for vaginal delivery may want an epidural, PLT 185 Limit vaginal exams until labor established 04/22/21 Plan Routine PP cares Encourage and support Monitor bleeding Expect discharge at 48 hours due to GBS pos <Karen Cristobal - Last Filed: 04/22/21 12:10> - Patient Data Vitals - Most Recent: Last Vital Signs Temp 97.5 F 04/22/21 08:20 Pulse 73 04/22/21 08:20 Resp 20 04/22/21 08:20 BP 99/64 04/22/21 08:20 Pulse Ox 96 04/22/21 08:20 Lab Results Last 24 Hours: Laboratory Results - last 24 hr 04/22/21 04/22/21 04/22/21 Range/Units 04:16 04:58 05:03 WBC (4.5-11.0) K/uL RBC (3.30-5.50) M/uL Hgb (12.0-15.0) g/dL Hct (36.0-48.0) % MCV (80-98) fL MCH (27-31) pg MCHC (32-36) % Plt Count (150-400) K/uL Neut % (Auto) (36-66) % Lymph % (Auto) (24-44) % [place] % (Auto) (2-6) % Eos % (Auto) (2-4) % Baso % (Auto) (0-1) % Urine Color Yellow (YELLOW) Urine Appearance Clear (CLEAR) Urine pH 7.0 (5.0-8.0) Ur Specific [place] 1.020 (1.008-1.030) Urine Protein Negative (NEGATIVE) mg/dL Urine Glucose (UA) Negative (NEGATIVE) mg/dL Urine Ketones Negative (NEGATIVE) mg/dL Urine Occult Blood Small H (NEGATIVE) Urine Nitrite Negative (NEGATIVE) Urine Bilirubin Negative (NEGATIVE) Urine Urobilinogen 0.2 (0.2-1.0) EU/dL Ur Leukocyte Esterase Negative (NEGATIVE) Urine RBC 0-5 (0-5) Urine WBC 0-5 (0-5) Ur Epithelial Cells Few Amorphous Sediment Not seen Urine Bacteria Few Urine Mucus Not seen Membrane Rupture Positive H (NEGATIVE) Urine Opiates Screen (NEGATIVE) Ur Oxycodone Screen (NEGATIVE) Urine Methadone Screen (NEGATIVE) Ur Propoxyphene Screen (NEGATIVE) Ur Barbiturates Screen (NEGATIVE) Ur Tricyclics Screen (NEGATIVE) Ur Phencyclidine Scrn (NEGATIVE) Ur Amphetamine Screen (NEGATIVE) U Methamphetamines Scrn (NEGATIVE) Urine MDMA Screen (NEGATIVE) U Benzodiazepines Scrn (NEGATIVE) U Cocaine Metab Screen (NEGATIVE) U Marijuana (THC) Screen (NEGATIVE) SARS-CoV-2 RNA (SIDNEY) Negative (NEGATIVE) 04/22/21 04/22/21 Range/Units 05:33 06:00 WBC 11.5 H (4.5-11.0) K/uL RBC 4.57 (3.30-5.50) M/uL Hgb 14.1 D (12.0-15.0) g/dL Hct 41.8 (36.0-48.0) % MCV 92 (80-98) fL MCH 31 (27-31) pg MCHC 34 (32-36) % Plt Count 185 (150-400) K/uL Neut % (Auto) 69.1 H (36-66) % Lymph % (Auto) 19.9 L (24-44) % [place] % (Auto) 8.2 H (2-6) % Eos % (Auto) 2.7 (2-4) % Baso % (Auto) 0.1 (0-1) % Urine Color (YELLOW) Urine Appearance (CLEAR) Urine pH (5.0-8.0) Ur Specific [place] (1.008-1.030) Urine Protein (NEGATIVE) mg/dL Urine Glucose (UA) (NEGATIVE) mg/dL Urine Ketones (NEGATIVE) mg/dL Urine Occult Blood (NEGATIVE) Urine Nitrite (NEGATIVE) Urine Bilirubin (NEGATIVE) Urine Urobilinogen (0.2-1.0) EU/dL Ur Leukocyte Esterase (NEGATIVE) Urine RBC (0-5) Urine WBC (0-5) Ur Epithelial Cells Amorphous Sediment Urine Bacteria Urine Mucus Membrane Rupture (NEGATIVE) Urine Opiates Screen Negative (NEGATIVE) Ur Oxycodone Screen Negative (NEGATIVE) Urine Methadone Screen Negative (NEGATIVE) Ur Propoxyphene Screen Negative (NEGATIVE) Ur Barbiturates Screen Negative (NEGATIVE) Ur Tricyclics Screen Negative (NEGATIVE) Ur Phencyclidine Scrn Negative (NEGATIVE) Ur Amphetamine Screen Negative (NEGATIVE) U Methamphetamines Scrn Negative (NEGATIVE) Urine MDMA Screen Negative (NEGATIVE) U Benzodiazepines Scrn Negative (NEGATIVE) U Cocaine Metab Screen Negative (NEGATIVE) U Marijuana (THC) Screen Negative (NEGATIVE) SARS-CoV-2 RNA (SIDNEY) (NEGATIVE) Med Orders - Current: Current Medications Penicillin G Potassium 2.5 (millunits/ Sodium Chloride) 50 mls @ 100 mls/hr IV Q4H AYDEN Last Admin: 04/22/21 08:59 Dose: 100 mls/hr Documented by: Sodium Chloride (Sodium Chloride 0.9% 10 Ml Syringe) 10 ml FLUSH ASDIRECTED PRN PRN Reason: Keep Vein Open Discontinued Medications Penicillin G Potassium 5 (millunits/ Sodium Chloride) 50 mls @ 100 mls/hr IV ONETIME ONE Stop: 04/22/21 05:44 Last Admin: 04/22/21 05:27 Dose: 100 mls/hr Documented by: Oxytocin/Sodium Chloride (Pitocin In Ns 20 Units/1,000 Ml) 20 unit in 1,000 mls @ 999 mls/hr IV ONETIME ONE; Protocol Stop: 04/22/21 07:28 - Problem List & Annotations (1) GBS (group B Streptococcus carrier), +RV culture, currently SNOMED Code(s): 7512831880802, 391873243, 0615935340067 Code(s): O99.820 - STREPTOCOCCUS B CARRIER STATE COMPLICATING Status: Acute Current Visit: Yes (2) SROM (spontaneous rupture of membranes) SNOMED Code(s): 012011527 Code(s): IFN0851 - Status: Acute Current Visit: Yes (3) SNOMED Code(s): 66571432 Code(s): Z34.90 - ENCNTR FOR SUPRVSN OF NORMAL , UNSP, UNSP TRIMESTER Status: Acute Current Visit: Yes Qualifiers: Weeks of gestation: 40 weeks Qualified Code(s): Z3A.40 - 40 weeks gestation of - My Orders Last 24 Hours: My Active Orders 04/22/21 03:56 OB Check [OM.PC] Click To Edit 04/22/21 06:24 Patient Status [ADT] Routine Communication Order [RC] ASDIRECTED Heart Tones [RC] PER UNIT ROUTINE Non Stress Test [RC] Click to Edit Notify Provider Vital Signs [RC] PRN Notify Provider [RC] PRN Vital Signs [RC] PER UNIT ROUTINE Sodium Chloride 0.9% [Saline Flush] 10 ml FLUSH ASDIRECTED PRN DVT/VTE Prophylaxis Reflex [OM.PC] Routine Saline Lock Insert [OM.PC] Routine Resuscitation Status Routine 04/22/21 06:27 Antiembolic Devices [RC] .Routine VTE/DVT Education [RC] Click to Edit 04/22/21 Breakfast Regular Diet [DIET] 04/22/21 09:15 Penicillin G Potassium [Pfizerpen] 2.5 millunits Sodium Chloride 0.9% [Normal Saline] 50 ml IV Q4H - Plan Plan:: I personally performed or re-performed the physical examination and medical decision making. I have verified all student documentation or findings, including history, physical exam and/or medical decision making. Karen CRABTREE
[2021-04-22] MEDS ORDERED: Acetaminophen 325 MG Tab, 50 Tab Bulk Bottle PO PRN (12:06)
[2021-04-22] MEDS ORDERED: Ibuprofen 200 MG Tab, 24 Tab Bulk Bottle PO PRN (12:06)
[2021-04-22] MEDS ORDERED: Lanolin 100% Cream 40 GM Tube TOP ONE (12:30)
[2021-04-22] MEDS ORDERED: Witch Hazel Medicated Pads 100/Jar TOP ONE (12:30)
[2021-04-22] MEDS ORDERED: Benzocaine 20% Top Spray 56 GM Bottle TOP ONE (12:30)
[2021-04-22] MEDS ORDERED: Hydrocortisone 2.5% Crm 30 GM Tube TOP ONE ×2 (12:45→16:00)
[2021-04-22] MEDS ORDERED: Witch Hazel Medicated Pads 100/Jar TOP PRN (15:00)
[2021-04-22] MEDS ORDERED: Benzocaine 20% Top Spray 56 GM Bottle TOP PRN (16:00)
[2021-04-22] MEDS ORDERED: Lanolin 100% Cream 40 GM Tube TOP PRN (16:00)
--- NOTE | 2021-04-23 10:29 | PCM.PNPP ---
- General Info Date of Service: 04/23/21 (PPD 1) Admission Dx/Problem (Free Text): Patient Status Order with Admit Dx/Problem 04/22/21 06:24 Patient Status [ADT] Routine Admission Diagnosis/Problem Admission Diagnosis/Problem Functional Status: Reports: Pain Controlled - Review of Systems General: Reports: No Symptoms HEENT: Reports: No Symptoms Pulmonary: Reports: No Symptoms Cardiovascular: Reports: No Symptoms Gastrointestinal: Reports: No Symptoms Genitourinary: Reports: No Symptoms Musculoskeletal: Reports: No Symptoms Skin: Reports: No Symptoms Neurological: Reports: No Symptoms Psychiatric: Reports: No Symptoms - Patient Data Vital Signs - Most Recent: Last Vital Signs Temp 97.0 F 04/23/21 07:41 Pulse 64 04/23/21 07:41 Resp 16 04/23/21 07:41 BP 105/66 04/23/21 07:41 Pulse Ox 98 04/23/21 07:41 Weight - Most Recent: 150 lb I&O - Last 24 Hours: Intake & Output 04/22/21 04/23/21 04/23/21 22:59 06:59 14:59 Intake Total 1400 1000 500 Balance 1400 1000 500 Lab Results - Last 24 Hours: Laboratory Results - last 24 hr 04/23/21 Range/Units 04:42 WBC 13.2 H (4.5-11.0) K/uL RBC 3.70 (3.30-5.50) M/uL Hgb 11.4 L D (12.0-15.0) g/dL Hct 34.4 L (36.0-48.0) % MCV 93 (80-98) fL MCH 31 (27-31) pg MCHC 33 (32-36) % Plt Count 157 (150-400) K/uL Med Orders - Current: Current Medications Acetaminophen (Acetaminophen 325 Mg Tab, 50 Tab Bulk Bottle) 0 mg PO Q4H PRN PRN Reason: Pain Last Admin: 04/22/21 15:45 Dose: 1 bottle Documented by: Benzocaine (Benzocaine 20% Top Captiva 56 Gm Bottle) 0 gm TOP Q4H PRN PRN Reason: Other Emollient Ointment (Lanolin 100% Cream 40 Gm Tube) 0 gm TOP ASDIRECTED PRN PRN Reason: Other Ibuprofen (Ibuprofen 200 Mg Tab, 24 Tab Bulk Bottle) 600 mg PO Q6H PRN PRN Reason: Pain Last Admin: 04/22/21 15:46 Dose: 1 bottle Documented by: Sodium Chloride (Sodium Chloride 0.9% 10 Ml Syringe) 10 ml FLUSH ASDIRECTED PRN PRN Reason: Keep Vein Open Witch Sharona (Witch Sharona Medicated Pads 100/Jar) 1 pad TOP ASDIRECTED PRN PRN Reason: Other Discontinued Medications Benzocaine (Benzocaine 20% Top Captiva 56 Gm Bottle) 0 gm TOP ONETIME ONE Stop: 04/22/21 12:31 Last Admin: 04/22/21 15:46 Dose: Not Given Documented by: Emollient Ointment (Lanolin 100% Cream 40 Gm Tube) 0 gm TOP ONETIME ONE Stop: 04/22/21 12:31 Last Admin: 04/22/21 15:47 Dose: Not Given Documented by: Hydrocortisone (Hydrocortisone 2.5% Crm 30 Gm Tube) 0 gm TOP ONETIME ONE Stop: 04/22/21 16:01 Last Admin: 04/22/21 15:57 Dose: 1 pkg Documented by: Penicillin G Potassium 5 (millunits/ Sodium Chloride) 50 mls @ 100 mls/hr IV ONETIME ONE Stop: 04/22/21 05:44 Last Admin: 04/22/21 05:27 Dose: 100 mls/hr Documented by: Penicillin G Potassium 2.5 (millunits/ Sodium Chloride) 50 mls @ 100 mls/hr IV Q4H AYDEN Last Admin: 04/22/21 08:59 Dose: 100 mls/hr Documented by: Oxytocin/Sodium Chloride (Pitocin In Ns 20 Units/1,000 Ml) 20 unit in 1,000 mls @ 999 mls/hr IV ONETIME ONE; Protocol Stop: 04/22/21 07:28 Last Admin: 04/22/21 11:05 Dose: 999 mls/hr, 999 mls/hr Documented by: Witcarmela Sharona (Witch Sharona Medicated Pads 100/Jar) 1 pad TOP ONETIME ONE Stop: 04/22/21 12:31 Last Admin: 04/22/21 15:45 Dose: 1 pkg Documented by: - Infant Interaction Disposition, : in Room with Family Interaction: Holding Infant Feeding: Breastfed Infant; Nursed Well Support Person: - Recovery Exam Fundal Tone: Firm Fundal Level: 1 Fingerbreadths Below Umbilicus Fundal Placement: Midline Lochia Amount: Small, Moderate Lochia Color: Rubra/Red Perineum Description: Intact, Minimal Bruising/Swelling Episiotomy/Laceration: None Bladder Status: Voiding Urinary Elimination: Voided - Exam General: Alert, Oriented HEENT: Pupils Equal Neck: Supple Lungs: Clear to Auscultation, Normal Respiratory Effort Cardiovascular: Regular Rate, Regular Rhythm GI/Abdominal Exam: Normal Bowel Sounds, Soft, Non-Tender, No Organomegaly, No Distention, No Abnormal Bruit, No Mass, Pelvis Stable Extremities: Normal Inspection, Normal Range of Motion, Non-Tender, No Pedal Edema, Normal Capillary Refill Skin: Warm, Dry, Intact Wound/Incisions: Healing Well Neurological: No New Focal Deficit Psy/Mental Status: Alert, Normal Affect, Normal Mood - Problem List & Annotations (1) GBS (group B Streptococcus carrier), +RV culture, currently SNOMED Code(s): 2016338397705, 298636707, 8351038102152 Code(s): O99.820 - STREPTOCOCCUS B CARRIER STATE COMPLICATING Status: Acute Current Visit: Yes (2) SROM (spontaneous rupture of membranes) SNOMED Code(s): 100744209 Code(s): WMJ6486 - Status: Acute Current Visit: Yes (3) SNOMED Code(s): 72382025 Code(s): Z34.90 - ENCNTR FOR SUPRVSN OF NORMAL , UNSP, UNSP TRIMESTER Status: Acute Current Visit: Yes Qualifiers: Weeks of gestation: 40 weeks Qualified Code(s): Z3A.40 - 40 weeks gestation of - Problem List Review Problem List Initiated/Reviewed/Updated: Yes - My Orders Last 24 Hours: My Active Orders 04/22/21 12:06 Acetaminophen [Tylenol Bulk Bottle] See Dose Instructions PO Q4H PRN Ibuprofen [Motrin Bulk Bottle] 600 mg PO Q6H PRN 04/22/21 12:07 Patient Status [ADT] Routine Vital Signs [RC] PFP 04/22/21 15:00 witch Sharona [Tucks] 1 pad TOP ASDIRECTED PRN 04/22/21 16:00 Benzocaine [Wsip-B-Leviocx 20% Captiva] 0 gm TOP Q4H PRN Lanolin [Lansinoh HPA] 0 gm TOP ASDIRECTED PRN - Assessment Assessment:: 04/22/21 Assessment: at 40 weeks gestation First degree perineal laceration GBS positive Adequate partner support 04/23/21 25 year old G 40 weeks without complications HGB 11.4 well no problems - Plan Plan:: I personally performed or re-performed the physical examination and medical decision making. I have verified all student documentation or findings, including history, physical exam and/or medical decision making. Karen CRABTREE 04/23/21 stable doing well home in am education on self cares development sibling introduction and support
--- NOTE | 2021-04-24 08:10 | PCM.PNPP ---
- General Info Date of Service: 04/24/21 Admission Dx/Problem (Free Text): Patient Status Order with Admit Dx/Problem 04/22/21 06:24 Patient Status [ADT] Routine Admission Diagnosis/Problem Admission Diagnosis/Problem Functional Status: Reports: Pain Controlled - Review of Systems General: Reports: No Symptoms HEENT: Reports: No Symptoms Pulmonary: Reports: No Symptoms Cardiovascular: Reports: No Symptoms Gastrointestinal: Reports: No Symptoms Genitourinary: Reports: No Symptoms Musculoskeletal: Reports: No Symptoms Skin: Reports: No Symptoms Neurological: Reports: No Symptoms Psychiatric: Reports: No Symptoms - Patient Data Vital Signs - Most Recent: Last Vital Signs Temp 97.3 F 04/24/21 07:19 Pulse 68 04/24/21 07:19 Resp 16 04/24/21 07:19 BP 104/70 04/24/21 07:19 Pulse Ox 97 04/24/21 07:19 Weight - Most Recent: 150 lb I&O - Last 24 Hours: Intake & Output 04/23/21 04/24/21 04/24/21 22:59 06:59 14:59 Intake Total 1360 1000 Balance 1360 1000 Med Orders - Current: Current Medications Acetaminophen (Acetaminophen 325 Mg Tab, 50 Tab Bulk Bottle) 0 mg PO Q4H PRN PRN Reason: Pain Last Admin: 04/22/21 15:45 Dose: 1 bottle Documented by: Benzocaine (Benzocaine 20% Top Bentley 56 Gm Bottle) 0 gm TOP Q4H PRN PRN Reason: Other Emollient Ointment (Lanolin 100% Cream 40 Gm Tube) 0 gm TOP ASDIRECTED PRN PRN Reason: Other Ibuprofen (Ibuprofen 200 Mg Tab, 24 Tab Bulk Bottle) 600 mg PO Q6H PRN PRN Reason: Pain Last Admin: 04/22/21 15:46 Dose: 1 bottle Documented by: Sodium Chloride (Sodium Chloride 0.9% 10 Ml Syringe) 10 ml FLUSH ASDIRECTED PRN PRN Reason: Keep Vein Open Witch Sharona (Witch Sharona Medicated Pads 100/Jar) 1 pad TOP ASDIRECTED PRN PRN Reason: Other Discontinued Medications Benzocaine (Benzocaine 20% Top [place] 56 Gm Bottle) 0 gm TOP ONETIME ONE Stop: 04/22/21 12:31 Last Admin: 04/22/21 15:46 Dose: Not Given Documented by: Emollient Ointment (Lanolin 100% Cream 40 Gm Tube) 0 gm TOP ONETIME ONE Stop: 04/22/21 12:31 Last Admin: 04/22/21 15:47 Dose: Not Given Documented by: Hydrocortisone (Hydrocortisone 2.5% Crm 30 Gm Tube) 0 gm TOP ONETIME ONE Stop: 04/22/21 16:01 Last Admin: 04/22/21 15:57 Dose: 1 pkg Documented by: Penicillin G Potassium 5 (millunits/ Sodium Chloride) 50 mls @ 100 mls/hr IV ONETIME ONE Stop: 04/22/21 05:44 Last Admin: 04/22/21 05:27 Dose: 100 mls/hr Documented by: Penicillin G Potassium 2.5 (millunits/ Sodium Chloride) 50 mls @ 100 mls/hr IV Q4H AYDEN Last Admin: 04/22/21 08:59 Dose: 100 mls/hr Documented by: Oxytocin/Sodium Chloride (Pitocin In Ns 20 Units/1,000 Ml) 20 unit in 1,000 mls @ 999 mls/hr IV ONETIME ONE; Protocol Stop: 04/22/21 07:28 Last Admin: 04/22/21 11:05 Dose: 999 mls/hr, 999 mls/hr Documented by: Alberto Tabor (Witch Sharona Medicated Pads 100/Jar) 1 pad TOP ONETIME ONE Stop: 04/22/21 12:31 Last Admin: 04/22/21 15:45 Dose: 1 pkg Documented by: - Infant Interaction Infant Disposition, : Mor[place] in Room with Family Infant Interaction: Holding Infant Infant Feeding: Breastfed ; Nursed Well Support Person: - Recovery Exam Fundal Tone: Firm Fundal Level: 1 Fingerbreadths Below Umbilicus Fundal Placement: Midline Lochia Amount: Small, Moderate Lochia Color: Rubra/Red Perineum Description: Intact, Minimal Bruising/Swelling Episiotomy/Laceration: None Bladder Status: Voiding Urinary Elimination: Voided - Exam General: Alert, Oriented HEENT: Pupils Equal Neck: Supple Lungs: Clear to Auscultation, Normal Respiratory Effort Cardiovascular: Regular Rate, Regular Rhythm GI/Abdominal Exam: Normal Bowel Sounds, Soft, Non-Tender, No Organomegaly, No Distention, No Abnormal Bruit, No Mass, Pelvis Stable Extremities: Normal Inspection, Normal Range of Motion, Non-Tender, No Pedal Edema, Normal Capillary Refill Skin: Warm, Dry, Intact Wound/Incisions: Healing Well Neurological: No New Focal Deficit Psy/Mental Status: Alert, Normal Affect, Normal Mood - Problem List & Annotations (1) GBS (group B Streptococcus carrier), +RV culture, currently SNOMED Code(s): 8375493714133, 800455968, [id number] Code(s): O99.820 - STREPTOCOCCUS B CARRIER STATE COMPLICATING Status: Acute Current Visit: Yes (2) SROM (spontaneous rupture of membranes) SNOMED Code(s): 045366266 Code(s): CMH6028 - Status: Acute Current Visit: Yes (3) SNOMED Code(s): 44215595 Code(s): Z34.90 - ENCNTR FOR SUPRVSN OF NORMAL , UNSP, UNSP TRIMESTER Status: Acute Current Visit: Yes Qualifiers: Weeks of gestation: 40 weeks Qualified Code(s): Z3A.40 - 40 weeks gestation of - Problem List Review Problem List Initiated/Reviewed/Updated: Yes - Assessment Assessment:: 04/22/21 Assessment: at 40 weeks gestation First degree perineal laceration GBS positive Adequate partner support 04/23/21 25 year old G 40 weeks without complications HGB 11.4 well no problems 04/24/21 Healthy without complications well Home today - Plan Plan:: I personally performed or re-performed the physical examination and medical decision making. I have verified all student documentation or findings, including history, physical exam and/or medical decision making. Karen CRABTREE 04/23/21 stable doing well home in am education on self cares development sibling introduction and support 04/24/21 See me 6 weeks for a post visit.
== END 2021-04-24 10:45 | disposition home or self-care (01) | DRG 807 ==
LOC: JP.OBCHECK 03:53 → JP.OB 03:53 → JP.OBCHECK 04:57 → JP.OB 05:00 → OBSVTOIN 11:03 → JP.MS 14:15
PROVIDERS: ADMIT Nurse Practitioner Family; ATTEND Nurse Practitioner Family
PROC: 10E0XZZ Delivery of Products of Conception, External Approach (ICD-10-PCS; principal; 2021-04-22)
PROC: 10907ZC Drainage of Amniotic Fluid, Therapeutic from Products of Conception, Via Natural or Artificial Opening (ICD-10-PCS; 2021-04-22)
PROC: 0HQ9XZZ Repair Perineum Skin, External Approach (ICD-10-PCS; 2021-04-22)
DX: O48.0 Post-term pregnancy (principal); Z37.0 Single live birth; Z3A.40 40 weeks gestation of pregnancy; O99.824 Streptococcus B carrier state complicating childbirth; O70.0 First degree perineal laceration during delivery; Z20.822 Contact with and (suspected) exposure to COVID-19
CPT/HCPCS: 36415; 80305-QW; 81001; 84112; 85025; 85027; 99211; A9270-GY; J2540; J2590; U0002